=== PATIENT | male | born 1985 | race Asian ===

== ENCOUNTER 2020-11-10 11:22 | Observation (INO) | payer OTHER, SELFPAY ==
[2020-11-10] VITALS (9 sets, daily range): BP systolic 103–125; BP diastolic 48–80; PULSE 60–79; RESP 12–20; TEMP 36.1–36.2; O2SAT 99–100; BMI 23.6
--- NOTE | ~2020-11-10 | MR_ITS ---
EXAMINATION: MR brain/brain stem wo con EXAM DATE: 11/11/2020 10:37 INDICATION: Seizure. TECHNIQUE: Magnetic resonance imaging (MRI) of the brain/brain stem obtained without contrast. (Jigar nt declined contrast portion of exam). Sagittal T1, axial diffusion, gradient echo (T2*), T1, T2, FLA IR sequences obtained. Seizure protocol was utilized including high-resolution coronal images through the hippocampi. Head CT from yesterday for correlation. FINDINGS: There are no areas of restricted diffusion to suggest acute infarction. There is no acute hemorrhage seen on the T2*, a hemosiderin sensitive sequence. No intraparenchymal brain mass. The ve ntricles are normal in size. There are no extra-axial collections. Flow voids are seen in the cereb ral arteries on the T2-weighted sequences consistent with their expected patency. The orbits are unr emarkable. Soft tissue is unremarkable. IMPRESSION: 1. Unremarkable brain MRI examination. Reviewed, dictated and finalized at location B.
--- NOTE | ~2020-11-10 | CT_ITS ---
EXAMINATION: CT brain wo con DATE: 11/10/2020 14:42 INDICATION: Seizure TECHNIQUE: Computed tomography (CT) of the head was performed without intravenous contrast. The mA wa s adjusted according to patient size. Iterative reconstruction technique was employed. Exam dose: 60 5.33 mGy-cm total exam DLP. COMPARISON: None FINDINGS: No intracranial mass lesion or hemorrhage or cerebrovascular accident is evident. No midlin e shift or mass effects. Normal martinez-white matter differentiation. Normal ventricular size. No subdural or epidural hematoma. The orbital contents are unremarkable. No fracture or bone destruction of the cranial vault. Included paranasal sinuses and mastoid air cell s are unremarkable. IMPRESSION: No significant abnormality Reviewed, dictated and finalized at Location A. Reviewed, dictated and finalized at location A. IMPRESSION: No significant abnormality
--- NOTE | ~2020-11-10 | XR_ITS ---
XR knee LT 3V DATE: 11/10/2020 14:39 INDICATION: Fall. Left knee injury. TECHNIQUE: 3 views including crosstable lateral COMPARISON: None FINDINGS: No fracture or dislocation or joint effusion is evident. No periosteal reaction or bone mckenna truction. Joint spaces are relatively preserved. No radiopaque intra-articular loose body or chondroc alcinosis. IMPRESSION: No significant abnormality Reviewed, dictated and finalized at location A. IMPRESSION: No significant abnormality
--- NOTE | 2020-11-10 11:50 | PC.NURSE ---
Addendum entered by Marsha Camacho RN 11/10/20 12:12: came to after 10 minutes. Denies hitting head, no tongue bites, denies losing bladder or bowel function. C/o sharp L knee pain, abrasion noted and bandage applied, no deformity. Pt then tried eating and then vomited. Reports hx seizure a few years ago , has never taken seizure meds Original Note: Arrives from triage s/p possible seizure vs. syncopal episode, this am was reaching for something then fell to ground, started full body shaking ~10-20 sec, was staring into space then
--- NOTE | 2020-11-10 11:51 | ECG_ITS ---
Measurements Intervals [place] Rate: 64 P: 74 MI: 138 QRS: 87 QRSD: 92 T: 64 QT: 408 QTc: 423 Interpretive Statements SINUS RHYTHM WITH SINUS ARRHYTHMIA INCOMPLETE RIGHT BUNDLE BRANCH BLOCK BASELINE ARTIFACT- II, III, AVR, AVF, V3-V6 BORDERLINE ECG Electronically Signed On 11-10-2020 19:15:11 CDT by Bijan Valdez D.O.
[2020-11-10 11:57] LABS: Glucose Point of Care 106 (65-105)
[2020-11-10 12:00] LABS: Basophils Percent Auto 0.3 % (0.2-1.2); Eosinophils Percent Auto 0.1 % (0-4.4); Hematocrit 46.2 % (42.0-52.0); Hemoglobin 15.6 g/dL (14.0-18.0); Immature Granulocyte Absolute 0.03 K/mm3 (0.00-0.031); Immature Granulocyte Percent A 0.3 % (0-0.5); Lymphocytes Absolute Auto 1.24 K/mm3 (0.9-3.2); Lymphocytes Percent Auto 14.2 % (18.3-44.2); Mean Corpuscular HGB Conc 33.8 g/dl (32-36); Mean Corpuscular Hemoglobin 30.2 pg (26-34); Mean Corpuscular Volume 89.4 fl (80-100); Mean Platelet Volume 10.2 fl (7.4-10.4); Monocytes Absolute Auto 0.5 K/mm3 (0.1-0.6); Monocytes Percent Auto 5.9 % (2.6-8.5); Neutrophils Absolute Auto 6.9 K/mm3 (1.3-6.7); Neutrophils Percent Auto 79.2 % (45.5-73.1); Platelet Count Result 189 k/mm3 (150-375); Red Blood Count 5.17 M/mm3 (4.6-6.20); White Blood Count 8.8 K/mm3 (4.5-10.0)
[2020-11-10 12:10] LABS: Anion Gap 8 mmol/L (8-16); Blood Urea Nitrogen 14 mg/dL (9-20); Calcium 9.3 mg/dL (8.4-10.2); Carbon Dioxide 29 mmol/L (22-30); Chloride 104 mmol/L (98-107); Estimated CRCL calculation 92 ml/min; Estimated Glomerular Filt Rate > 60; Glucose 115 mg/dL (75-110); Potassium 3.6 mmol/L (3.4-5.0); Sodium 141 mmol/L (137-145)
--- NOTE | 2020-11-10 12:40 | PC.NURSE ---
Updated on POC, awaiting ED provider eval. Provided blanket, placed in position of comfort, call light within reach
[2020-11-10] MEDS: SODIUM CHLORIDE 0.9% IV 1,000 ML 999 ML IV CONT (14:35)
--- NOTE | 2020-11-10 16:31 | ED.SYNCOPE ---
HPI - Syncope General Chief Complaint: Syncope Stated Complaint: seizure Time Seen by Provider: 11/10/20 12:06 Source: patient Mode of arrival: EMS Limitations: no limitations History of Present Illness HPI narrative: 35-year-old with no major medical problems was brought in from home ambulance with a possible syncope versus seizure. Patient states that he woke up and accidentally hit his left knee against a dresser had severe pain walked into the other room had near syncopal and later went into the kitchen passed out on the floor and as per his he had a seizure-like activity lasting for few seconds to a minute his states that his eyes were open but he was was not answering questions but no bladder or bowel incontinence. Patient upon arrival to the ER complains of headache and dizziness. He denied any chest pain, shortness of breath or palpitation prior to the evening. MD complaint: loss of consciousness Description of event: tonic-clonic movements Prodromal symptoms: none Witnessed: Yes - by Other (by his ) Injuries sustained associated with event: LLE (left knee) Current symptoms: none Related Data Home Medications Medication Instructions Recorded Confirmed No Home Medications 11/10/20 11/10/20 Allergies Allergy/AdvReac Type Severity Reaction Status Date / Time iohexol AdvReac Itching Verified 11/10/20 13:06 [From contrast - CT, X-RAY] Review of Systems Review of Systems: All systems reviewed & are unremarkable except as noted in HPI and below Constitutional: Constitutional: Reports no additional constitutional complaints Eyes: Eyes: Reports no additional eye complaints ENT: Reports system reviewed and no additional complaints, except as documented Cardiovascular: Cardiovascular: Reports no additional cardiovascular complaints Respiratory: Respiratory: Reports no additional respiratory complaints Gastrointestinal: Gastrointestinal: Reports no additional gastrointestinal complaints Genitourinary: Genitourinary: Reports no additional male genitourinary complaints Musculoskeletal: Musculoskeletal: Reports no additional musculoskeletal complaints Integumentary/Breasts: Skin/Breast: Reports system reviewed and no additional complaints, except as docu Neurologic: Reports system reviewed and no additional complaints, except as documented Endocrine: Endocrine: Reports no additional endocrine complaints Hematologic/Lymphatic: Hematologic/Lymphatic: Reports no additional hematologic/lymphatic complaints Exam Narrative: Exam Narrative: GENERAL: Well-appearing, well-nourished, and in no acute distress. HEAD: Normocephalic, atraumatic. EYES: PERRLA and EOMI. ENT: Nares clear, no rhinorrhea or epistaxis. Mucous membranes moist. NECK: Supple. CHEST: Clear to auscultation. No respiratory distress. HEART: Regular rate and rhythm. No murmur heard. Normal peripheral pulses. ABDOMEN: Soft, nontender, nondistended, normal active bowel sounds. EXTREMITIES: Normal range of motion. No edema. minor abrasions on the left knee SKIN: Warm, dry, no rash. NEURO: No focal deficits. Alert and oriented x3. PSYCH: Normal mood and affect. Course Course Emergency Course: Inform patient about his lab work, CT findings. Will admit him for observation. Vital Signs Vital signs: Vital Signs Temperature 36.1 C L 11/10/20 11:34 Pulse Rate 72 11/10/20 11:34 Respiratory Rate 20 11/10/20 11:34 Blood Pressure 107/76 11/10/20 11:34 Pulse Oximetry 100 11/10/20 11:34 Temperature 36.1 C L 11/10/20 11:34 Pulse Rate 79 11/10/20 15:36 Respiratory Rate 18 11/10/20 15:36 Blood Pressure 103/69 11/10/20 15:36 Pulse Oximetry 99 11/10/20 15:36 MDM - Syncope Lab Data Result diagrams: 11/10/20 11:54 11/10/20 11:54 Labs: Lab Results 11/10/20 11/10/20 11/10/20 Range/Units 11:54 11:54 11:54 WBC 8.8 (4.5-10.0) K/mm3 RBC 5.17 (4.6-6.20) M/mm3 H
--- NOTE | 2020-11-10 18:10 | ADMGEN ---
This patient, Shaji Bowser, was admitted to Medical Room 344-01. Patient/family oriented to hospital policies and general routines including ID bracelet, bed and alarms, visiting hours, pain management, procedures, bathroom and other care routines, personal items, smoking policy, room service/diet, and visiting hours. Information on how to activate the Rapid Response Team has been discussed. Patient/Family are encouraged to report perceived risks to care and to ask questions if they do not understand what they are told or what they should do. patient in bed resting comfortably in bed at this time with no complaints at this time. Will continue to monitor.
[2020-11-10 19:18] LABS: Troponin I < 0.012 ng/mL (0.000-0.034)
[2020-11-10] MEDS: SODIUM CHLORIDE 0.9% IV 1,000 ML 125 ML IV CONT (19:18)
--- NOTE | 2020-11-10 19:30 | PM.IMHP ---
H&P: HPI History of Present Illness Date/Time: 11/10/20 19:15 <Shonda Lind PA-C - Last Filed: 11/14/20 00:44> Chief Complaint: Unresponsive episode. <Shonda Lind PA-C - Last Filed: 11/14/20 00:44> Narrative: This is a previously healthy 35-year-old male who presented to the emergency department earlier today via ambulance for evaluation of an unresponsive episode. When he woke this morning he hit the left knee against his dresser quite hard and reports having severe pain with that. He then walked to the kitchen to get some ointment and while walking he began feeling lightheaded, dizzy, weak, and nauseated. It is my understanding he had a syncopal episode in the kitchen and that occurred 2 more times when he tried to get up. These episodes were witnessed by his was apparently a nurse and she reports that with each episode he had 10 to 20 seconds of ?shaking? and she was concerned that he was having a seizure. Apparently the patient had a seizure approximately 10 years ago although that is not confirmed. He does admit that he has not been sleeping well as he has 2 young children at home. He denies significant alcohol or caffeine use. He has not taken any new medications or supplements. At the time my evaluation he feels fine but is worried about the events that transpired today. He denies headache, head trauma, auditory and visual changes, vertigo, focal weakness, paresthesias. <Shonda Lind PA-C - Last Filed: 11/14/20 00:44> Review of Systems Review of Systems: All systems reviewed & are unremarkable except as noted in HPI and below <Waldo Ly MD - Last Filed: 11/10/20 18:09> Constitutional: Constitutional: Reports no additional constitutional complaints <Waldo Ly MD - Last Filed: 11/10/20 18:09> Eyes: Eyes: Reports no additional eye complaints <Waldo Ly MD - Last Filed: 11/10/20 18:09> PMFSH Past Medical History Medical History: Medical History Gastroesophageal reflux disease <Shonda Lind PA-C - Last Filed: 11/14/20 00:44> Surgical History Surgical History: Surgical History No history of previous surgery <SHRUTHI Robles Last Filed: 11/14/20 00:44> Family History Family History: Family History Other No significant family history <SHRUTHI Robles Last Filed: 11/14/20 00:44> Social History Social History: Social History Social History: Surrogate decision maker: Juhi Hand, . Code status: Full code. Smoking status: Never smoker Alcohol intake: never Substance use: never Substance use type: does not use Additional living arrangements comments: The patient lives in [place] with his in their 2 young children. 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 Gender identity (if verbalized by the patient): Male Spiritual care concerns: No <SHRUTHI Robles Last Filed: 11/14/20 00:44> Meds Home Medications and Allergies Home medications: Home Medications Medication Instructions Recorded Confirmed Type No Home Medications 11/10/20 11/10/20 History <SHRUTHI Robles Last Filed: 11/14/20 00:44> Allergies/Adverse reactions: Allergies Allergy/AdvReac Type Severity Reaction Status Date / Time iohexol AdvReac Itching Verified 11/10/20 13:06 [From contrast - CT, X-RAY] <SHRUTHI Robles Last Filed: 11/14/20 00:44> Vital Signs Vital Signs - 24 hr 11/10/20 11:34 11/10/20 12:00 11/10/20 15:36 Temperature 97.0 F L Pulse Rate 72 60 79 Respiratory Rate 20 16 18 Blood Pressure 107/76 114/80 103/69 Pulse Oximetry 100 100 99 <
[2020-11-10 22:54] LABS: Troponin I < 0.012 ng/mL (0.000-0.034)
[2020-11-11] VITALS (7 sets, daily range): BP systolic 110–126; BP diastolic 55–74; PULSE 65–85; RESP 12; TEMP 36.2; O2SAT 100
[2020-11-11 06:07] LABS: Alanine Aminotransferase 19 U/L (4-50); Alkaline Phosphatase 68 U/L (38-126); Anion Gap 3 mmol/L (8-16); Aspartate Amino Transferase 25 U/L (17-59); Bilirubin,Total 0.4 mg/dL (0.2-1.3); Blood Urea Nitrogen 10 mg/dL (9-20); Calcium 9.2 mg/dL (8.4-10.2); Carbon Dioxide 27 mmol/L (22-30); Chloride 109 mmol/L (98-107); Estimated CRCL calculation 92 ml/min; Estimated Glomerular Filt Rate > 60; Glucose 98 mg/dL (75-110); Magnesium 2.2 mg/dL (1.6-2.3); Potassium 3.9 mmol/L (3.4-5.0); Sodium 139 mmol/L (137-145)
--- NOTE | 2020-11-11 09:30 | PC.NURSE ---
Patient to MRI via hospital wheelchair.
--- NOTE | 2020-11-11 09:33 | WPDNEURCNPN ---
Assessment and Plan Assessment and plan (1) Vasovagal syncope: Code(s): R55 - Syncope and collapse Status: Acute Additional Plan History of trauma to the left knee resulting in the vasovagal syncope and a brief generalized seizure at this stage examination is normal and nonfocal only routine EEG will be obtained otherwise he will not need any specific medications if you have any further questions please do not hesitate to contact me Consult date: 11/11/20 Time Seen: 09:00 HPI: Shaji Bowser is a 35 year old maleAdmitted to the hospital for the complaints of unresponsive episode he was brought to the emergency room via ambulance with information that he woke up in the morning hit the left knee against his dresser quite heart resulting in severe pain when walking to the kitchen to get some ointment and while walking he began feeling lightheaded dizzy weak and nauseated and had a syncopal episode in the kitchen which occur 2 more times when he tried to get up the episodes were witnessed by his were apparently a nurse and reported that with each episode he had 10 to 20 seconds of shaking and was concern that he was having a seizures patient has had a seizure approximately 10 years ago he has not been sleeping well he has 2 young children at home he gave no history of drinking alcohol or caffeine use excessive and also he is not taking any specific medication his past history is consistent with only GERD. evaluation up until now documented in the negative x-ray of the knee normal CT scan of the brain normal CBC and basic metabolic panel. Review of Systems Review of Systems: All systems reviewed & are unremarkable except as noted in HPI and below PMFSH Past Medical History Medical History Gastroesophageal reflux disease Surgical History Surgical History No history of previous surgery Family History Family History Other No significant family history Social History Social History Social History: Surrogate decision maker: Juhi Hand, . Code status: Full code. Smoking status: Never smoker Alcohol intake: never Substance use: never Substance use type: does not use Additional living arrangements comments: The patient lives in [place] with his in their 2 young children. 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 Gender identity (if verbalized by the patient): Male Sexual Orientation (if Verbalized by the Patient): Straight or Heterosexual Spiritual care concerns: No Meds Home Medications and Allergies Home Medications Medication Instructions Recorded Confirmed Type No Home Medications 11/10/20 11/10/20 History Allergies Allergy/AdvReac Type Severity Reaction Status Date / Time iohexol AdvReac Itching Verified 11/10/20 13:06 [From contrast - CT, X-RAY] Vital Signs Vital Signs - 24 hr 11/10/20 11:34 11/10/20 12:00 11/10/20 15:36 Temperature 36.1 C L Pulse Rate 72 60 79 Respiratory Rate 20 16 18 Blood Pressure 107/76 114/80 103/69 Pulse Oximetry 100 100 99 11/10/20 18:00 11/10/20 19:42 11/10/20 20:00 Temperature 36.2 C L Pulse Rate 74 73 73 Respiratory Rate 12 Blood Pressure 123/76 Pulse Oximetry 99 11/10/20 20:59 11/10/20 21:00 11/10/20 21:01 Temperature Pulse Rate Respiratory Rate Blood Pressure 111/48 L 125/78 117/62 Pulse Oximetry 11/11/20 00:00 11/11/20 04:00 11/11/20 05:22 Temperature 36.2 C L Pulse Rate 65 67 68 Respiratory Rate 12 Blood Pressure 110/55 L Pulse Oximetry 100 11/11/20 08:00 Temperature Pulse Rate 75 Respiratory Rate Blood Pressure Pulse Oximetry Exam Const: General: cooperative, healthy a
--- NOTE | 2020-11-11 10:41 | PC.NURSE ---
Patient returned from MRI via hospital wheelchair.
--- NOTE | 2020-11-11 12:04 | PC.NURSE ---
Per Dr. Saleem's request I spoke with Dr. Waggoner to see if the patient was able to be discharged without an EEG. Patient's MRI came back unremarkable. Verified with Dr. Waggoner that patient can be discharged at any time. Gave Dr. Saleem the information obtained from Dr. Waggoner and he will be up to speak with the patient and discharge him today.
--- NOTE | 2020-11-11 14:16 | PM.DS ---
DS: Admitting Diagnosis Admitting Diagnosis Admitting Diagnosis: Unresponsive episode. DS: Summary Hospital Course Reason for hospitalization: This is a previously healthy 35-year-old male who presented to the emergency department earlier today via ambulance for evaluation of an unresponsive episode. When he woke this morning he hit the left knee against his dresser quite hard and reports having severe pain with that. He then walked to the kitchen to get some ointment and while walking he began feeling lightheaded, dizzy, weak, and nauseated. It is my understanding he had a syncopal episode in the kitchen and that occurred 2 more times when he tried to get up. These episodes were witnessed by his was apparently a nurse and she reports that with each episode he had 10 to 20 seconds of ?shaking? and she was concerned that he was having a seizure. Apparently the patient had a seizure approximately 10 years ago although that is not confirmed. He does admit that he has not been sleeping well as he has 2 young children at home. He denies significant alcohol or caffeine use. He has not taken any new medications or supplements. At the time my evaluation he feels fine but is worried about the events that transpired today. He denies headache, head trauma, auditory and visual changes, vertigo, focal weakness, paresthesias. Hospital Course: Patient was seen by neurology and suspect most likely patient had vasovagal after injuring his left knee, and does not suspect seizure, to further evaluate patient had CT scan of the head and MRI of the brain which were essentially normal, communicated with the neurology will do the EEG, will discharge the patient he will follow-up with neurology further results and further recommendation, the neurology status patient does not need any seizure medication patient instructed not to drive until seen by the neurologist. Patient clinically stable will discharge the patient home today Status at Discharge Functional status at discharge: independent ambulation Overall status at discharge: patient is back to baseline Time Spent with Patient Time attestation: Total time spent providing and/or coordinating discharge services: Patient was seen and examined at the time of the discharge Condition at discharge is stable Code status: Full code. Time spent preparing discharge summary, discharge medications, discussing discharge planning with protective services case worker and patient is 35 minutes. Time spent: Greater than 30 minutes Exam Narrative: Exam Narrative: Patient is comfortable, NAD HEENT: eyes are clear and none icteric LUNGS:CTA HEART: RR S1S2 ABD: BS+, Soft and nontender Lower extremities: no edema SKIN: nonjaundiced Neuro: grossly intact. DS: Data Data Completed and Pending Labs on day of discharge: Labs from last 24 hours 11/11/20 11/10/20 11/10/20 05:32 22:23 18:52 Sodium 139 Potassium 3.9 Chloride 109 H Carbon Dioxide 27 Anion Gap 3 L BUN 10 Creatinine 0.90 Estim Creat Clear Calc 92 Estimated GFR > 60 Glucose 98 Calcium 9.2 Magnesium 2.2 Total Bilirubin 0.4 AST 25 ALT 19 Alkaline Phosphatase 68 Troponin I < 0.012 < 0.012 Total Protein 7.0 Albumin 4.0 Discharge Plan Discharge Attending physician on discharge: Juan Manuel Saleem Consulting providers: Jesus Waggoner Discharging Clinician: Juan Manuel Saleem Patient Disposition: Home, Self-Care Activity: no driving Diet: regular Discharge Instructions: Patient is instructed no driving until seen by his neurologist, patient is intructed if any symptoms redevelop to go to nearest ER. Patient Instructions: Antibiotic Form, Syncope (DC), Pain Management (DC) Stand Alone Forms: General Discharge Information Follow-up/Referrals: Arcenio Gutierrez MD [Primary Care Provider] - Jesus Waggoner MD [Physician] - Discharge Medications: No Action No Home Medications RF: 0
--- NOTE | 2020-11-12 09:59 | P.NEURO_ITS ---
Neurology EEG Report General Information Date of Study: 11/11/20 TEST EEG DIAGNOSIS seizures CONDITION OF RECORDING awake drowsy and sleep EEG NUMBER [id number] CLINICAL HISTORY possible seizure EEG DESCRIPTION basic resting occipital frequency consists of large amount of well-organized medium voltage 9 to 11 hertz per second alpha admixed with low-voltage 15 to 18 hertz per second beta. During drowsiness low-voltage beta activity seen dif fusely admixed with posterior vexing and waning alpha rhythm. Hyperventilation not done photic stimulation not done. Bilateral symmetrical sleep activity is seen during sleep. Non paroxysmal. Nonfocal. Nonlateralizing. IMPRESSION Normal record
== END 2020-11-11 15:20 | disposition home or self-care (01) ==
LOC: ANHED 16:38 → ANH3MED 22:52
PROVIDERS: Emergency Medicine; Physician Assistant; Admitting Provider Internal Medicine; Emergency Provider Family Medicine; PCP Emergency Medicine; Visit Provider Family Medicine
DX: R55 Syncope and collapse (principal); M25.562 Pain in left knee; K21.9 Gastro-esophageal reflux disease without esophagitis
CPT/HCPCS: 36415; 70450; 70551; 73562; 80048; 80053; 82948; 83735; 84484; 85025; 93005; 95816; 96360; 96361; 99285; G0378; J7030

== ENCOUNTER 2023-10-15 09:02 | Outpatient (CLI) | payer OTHER, SELFPAY ==
--- NOTE | ~2023-10-15 | XR_ITS ---
XR hip BI 2V w AP pelvis DATE: 10/15/2023 09:45 INDICATION: Hip pain TECHNIQUE: AP pelvis. AP and lateral views of each hip. COMPARISON: None FINDINGS: No pelvic fracture or bone destruction. The pubic symphysis and sacroiliac joints are intac t. Mild bilateral hip osteoarthritis. No fracture or dislocation, avascular necrosis or bone destruction of either hip is detected. IMPRESSION: Mild bilateral hip osteoarthritis. Reviewed, dictated and finalized at location B.
--- NOTE | ~2023-10-15 | XR_ITS ---
EXAMINATION: XR foot RT min 3V DATE: 10/15/2023 09:46 INDICATION: Right foot pain TECHNIQUE: Dorsoplantar, two oblique and lateral views of the right foot were obtained. COMPARISON: None. FINDINGS: Alignment is normal. No fracture. Mild osteoarthritis of the first metatarsophalangeal joint with sub articular cystic change at the medial head of the first metatarsal. Tiny Achilles calcaneal spur. Sof t tissues are unremarkable. No ankle joint effusion. IMPRESSION: 1. Mild osteoarthritis of the first metatarsophalangeal joint. No acute osseous abnormalities. Reviewed, dictated and finalized at location A.
== END 2023-10-15 09:03 ==
PROVIDERS: PCP Emergency Medicine; Visit Provider Emergency Medicine
DX: M19.071 Primary osteoarthritis, right ankle and foot (principal); M16.11 Unilateral primary osteoarthritis, right hip
CPT/HCPCS: 73521; 73630

== ENCOUNTER 2024-07-20 09:29 | Outpatient (CLI) | payer OTHER, SELFPAY ==
--- NOTE | ~2024-07-20 | US_ITS ---
EXAM: ABDOMEN ULTRASOUND HISTORY: chronic hepatitis B COMPARISON: None FINDINGS: LIVER: The liver is homogeneously decreased to in echogenicity and unremarkable in size measuring 15 cm in longitudinal dimension. The portal vein is patent, although demonstrating phasic hepatopedal flow. The contour of the liver is smooth. GALLBLADDER: The gallbladder is minimally distended, but otherwise unremarkable. BILE DUCTS: Common bile duct measures 3.8mm. PANCREAS: Limited evaluation of the pancreas secondary to overlying bowel gas IMPRESSION: Phasic flow within the portal vein suggesting early portal hypertension. Flow remains hepatopedal without additional abnormality. Reviewed, dictated and finalized at location A. 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
== END 2024-07-20 09:30 | disposition home or self-care (01) ==
PROVIDERS: PCP Emergency Medicine
DX: K21.9 Gastro-esophageal reflux disease without esophagitis (principal); B18.1 Chronic viral hepatitis B without delta-agent
CPT/HCPCS: 76705